=== PATIENT | male | born 1965 | race Caucasian/White ===

== ENCOUNTER 2022-12-10 05:48 | Day surgery (SDC) | payer MEDICAID ==
[2022-12-10] MEDS ORDERED: Dextrose 5%-Lactated Ringers 1,000 ML IV SCH (06:15)
[2022-12-10] MEDS ORDERED: Bupivacaine 0.5% 50 ML MDV ONE (06:33)
[2022-12-10] MEDS ORDERED: Lidocaine 1% with EPINEPHrine 1:100,000 50 ML MDV ONE (06:33)
[2022-12-10] MEDS ORDERED: Meropenem 500 MG SDV ONE (06:34)
[2022-12-10] MEDS ORDERED: fentaNYL 100 MCG/2 ML SDV ONE ×2 (07:05→07:42)
[2022-12-10] MEDS ORDERED: Propofol 200 MG/20 ML SDV ONE ×3 (07:06→07:57)
[2022-12-10] MEDS ORDERED: Midazolam 1 MG/ML 2 ML SDV ONE (07:06)
[2022-12-10] MEDS ORDERED: cefOXitin 2 GM in Sodium Chloride 0.9% 50 ML IV ONE (07:15)
[2022-12-10] MEDS ORDERED: ceFAZolin 2 GM in Premix Bag 1 BAG IV ONE (07:15)
[2022-12-10] MEDS ORDERED: Ketorolac 30 MG/ML SDV ONE (07:33)
[2022-12-10 10:27] VITALS: BP 108/66; PULSE 46
== END 2022-12-10 11:25 | disposition home or self-care (01) ==
LOC: JP.SDS 05:48
PROVIDERS: ATTEND Surgery
DX: K40.90 Unilateral inguinal hernia, without obstruction or gangrene, not specified as recurrent (principal)
CPT/HCPCS: 49507; 64772; C1713; C1781; J0131; J0690; J1885; J2250; J2704; J3010; J3490; J7121; 88302; 88342; J2185